=== PATIENT | male | born 1955 | race Caucasian/White ===

== ENCOUNTER → 2016-09-02 | Outpatient (CLI) | payer OTHER ==
[~2016-09-02] MED LIST: ACYC800T PO; CIAL20TA PO; CIAL5TAB PO; IOHEXOL 350 MG/ML 10 ML VIAL (for RAD DIAG) IV ONE; METF500T PO; VIAG100T PO
--- NOTE | 2016-09-02 14:21 | RADRPT ---
EXAM DATE/TIME: 09/02/2016 13:57 [facility] COMPARISON: No previous studies available for comparison. INDICATIONS : Left hernia swelling. IV CONTRAST: 96 cc Omnipaque 350 (iohexol) IV ORAL CONTRAST: No oral contrast ingested. RADIATION DOSE: 20.52 CTDIvol (mGy) MEDICAL HISTORY : Renal calculi. SURGICAL HISTORY : Inguinal hernia repair. ENCOUNTER: Initial ACUITY: 1 day PAIN SCALE: 5/10 LOCATION: abdomen TECHNIQUE: Volumetric scanning of the abdomen and pelvis was performed. Using automated exposure control and ad justment of the mA and/or kV according to patient size, radiation dose was kept as low as reasonably achievable to obtain optimal diagnostic quality images. FINDINGS: LOWER LUNGS: The visualized lower lungs are clear. LIVER: Homogeneous density without lesion. There is no dilation of the biliary tree. No calcified gallston es. Gallbladder seems a little structure without wall thickening SPLEEN: Normal size without lesion. PANCREAS: Within normal limits. KIDNEYS: Normal in size and shape. There is no stone or hydronephrosis. 3.7 cm cyst upper pole left kidney ADRENAL GLANDS: Within normal limits. VASCULAR: There is no aortic aneurysm. BOWEL/MESENTERY: The stomach, small bowel, and colon demonstrate no acute abnormality. There is no free intraperitone al air or fluid. Appendix visualized and is normal ABDOMINAL WALL: Within normal limits. RETROPERITONEUM: There is no lymphadenopathy. BLADDER: No wall thickening or mass. REPRODUCTIVE: Within normal limits. INGUINAL: Surgical sudheer across the lower pelvis inguinal regions there is evidence of prior repair inguinal hernias. MUSCULOSKELETAL: Within normal limits for patient age. CONCLUSION: No acute intra-abdominal or pelvic process. 3.7 cm cyst upper pole left kidney no evidence of renal c alculi or obstructive uropathy. Surgical sudheer across the lower pelvis and anal region as evidence of hernia repair with no recurre char Beckett MD on September 02, 2016 at 14:15 Board Certified Radiologist. This report was verified electronically.
== END ==
LOC: HRAD 12:38
PROVIDERS: ATTEND Pediatrics
DX: R10.9 Unspecified abdominal pain (principal); K40.90 Unilateral inguinal hernia, without obstruction or gangrene, not specified as recurrent
CPT/HCPCS: 74177; Q9967

== ENCOUNTER 2017-08-18 05:37 | Emergency (ER) | payer OTHER ==
[~2017-08-18] VITALS: Ht 190.5 cm; Wt 113.8 kg
[~2017-08-18 05:37] MED LIST changes: -CIAL5TAB PO; -IOHEXOL 350 MG/ML 10 ML VIAL (for RAD DIAG) IV ONE
[2017-08-18 05:55] VITALS: BP 168/102; PULSE 89; RESP 18; TEMP 98.6; O2SAT 99
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
[2017-08-18 07:50] VITALS: BP 147/79; PULSE 67; RESP 16; O2SAT 96
== END 2017-08-18 07:59 | disposition home or self-care (01) ==
LOC: PHED 05:37
DX: S06.0X0A Concussion without loss of consciousness, initial encounter (principal); H53.8 Other visual disturbances; Z87.19 Personal history of other diseases of the digestive system; Z87.442 Personal history of urinary calculi; Z85.828 Personal history of other malignant neoplasm of skin; V89.2XXA Person injured in unspecified motor-vehicle accident, traffic, initial encounter
CPT/HCPCS: 70450; 72131; 99285